=== PATIENT | female | born 1980 | race Caucasian/White ===

== ENCOUNTER → 2023-12-10 | Outpatient (REF) | payer OTHER, SELFPAY | LOC: DHSLP | PROVIDERS: ATTENDING PHYSICIAN Otolaryngology; FAMILY PHYSICIAN Student in an Organized Health Care Education/Training Program | DX: G47.30 Sleep apnea, unspecified (principal); R06.83 Snoring | CPT/HCPCS: 95806 ==

== ENCOUNTER 2024-02-01 13:25 | Emergency (ER) | payer OTHER, SELFPAY ==
[2024-02-01 13:31] VITALS: BMI 19.3
[2024-02-01 14:00] VITALS: BP 111/69
[2024-02-01 14:26] VITALS: BP 115/76
[2024-02-01] MEDS: ATIVAN 0.25 MG PO (14:35)
[2024-02-01 14:47] LABS: % Basophils 0.1 % (0-2); % Eosinophils 0.1 % (0-6); % Immature Granulocytes 0.2 % (0-0.5); % Lymphocytes 13.3 % (20.5-51.1); % Neutrophils 82.3 % (42.2-75.2); Absolute Lymphocytes 1.1 10^3/uL (1.2-3.4); Absolute Monocytes 0.3 10^3/uL (0.1-0.6); Absolute Neutrophils 6.7 10^3/uL (1.4-6.5); Hematocrit 37.4 % (37.0-47.0); Hemoglobin 13.7 g/dL (12.0-16.0); Mean Corp Hgb Conc. 36.6 g/dL (33.0-37.0); Mean Corpuscular Hgb 32.8 pg (27.0-31.0); Mean Corpuscular Volume 89.5 fL (81.0-99.0); Mean Platelet Volume 11.3 fL (7.4-10.4); Nucleated Red Blood Cells % 0 %; Platelet Count 160 10^3/uL (130-400); Red Blood Cell Count 4.18 10^6/uL (4.20-5.40); Red Cell Dist. Width 12.4 % (11.5-14.5); White Blood Cell Count 8.2 10^3/uL (4.8-10.8)
--- NOTE | 2024-02-01 14:53 | ED.GENMED ---
History of Present Illness
General
Chief Complaint: Anxiety
Time Seen by Provider: 02/01/24 13:32
History of Present Illness
History of Present Illness:
43-year-old female with history of anxiety presenting to the emergency department with increased anxiety and concern of 'fogginess '. Patient reports 4 days ago her medications were adjusted. She is on BuSpar and Prozac. She is in outpatient
therapy, and her medications were adjusted because she still having anxiety. After medication adjustment, started to have flushing, and overall feeling unwell. She denies chest pain or difficulty breathing. She notes some nausea without vomiting.
She denies any fever, however reports that she feels hot and flushed. She was googling her symptoms and now she is concerned for serotonin syndrome. She denies additional acute medical complaints.
Past History
Past History
ED Past Medical History: Psychiatric
ED Past Surgical History: None
Patient has exhibited threatening behavior?: No
PSI?: No
Social History
Tobacco: Non-smoker
Alcohol: Former
Drug: None
Personal:
Living: with family
Phy Exam
Physical Exam
Physical Exam:
General: Well-appearing, no clinical signs of dehydration, nontoxic and in no acute distress
HEENT: protecting airway
Neck: appears supple
CV: Normal heart rate, regular rhythm, no evidence of cyanosis
Resp: No accessory muscle use, no increased work of breathing, lungs clear to auscultation bilaterally
Abd: Soft and non-distended, no tenderness to palpation, normal bowel sounds
Extremities: No deformities, no swelling, no erythema, pulses and sensation intact
Neuro: alert, no focal neurologic deficit
: deferred
Rectal: deferred
Psych: Anxious
Skin: Intact
Course
Orders/Labs/Results
Orders:
Orders
02/01/24 14:15
Lorazepam [Ativan] 0.25 mg PO ONCE ONE
02/01/24 14:42
Complete Blood Count/With Diff Urgent
Comprehensive Metabolic Panel Urgent
Abnormal Lab Results
02/01/24
14:42
RBC 4.18 L 10^6/uL
(4.20-5.40)
MCH 32.8 H pg
(27.0-31.0)
MPV 11.3 H fL
(7.4-10.4)
Absolute Neuts (auto) 6.7 H 10^3/uL
(1.4-6.5)
Absolute Lymphs (auto) 1.1 L 10^3/uL
(1.2-3.4)
Neutrophils % 82.3 H %
(42.2-75.2)
Lymphocytes % 13.3 L %
(20.5-51.1)
Creatinine 0.5 L mg/dL
(0.6-1.0)
Glucose 100 H mg/dl
(70-99)
02/01/24 14:42
02/01/24 14:42
Vital Signs
Initial and Last Documented VS:
Initial Vital Signs
Pulse Resp Pulse Ox
82 16 100
02/01/24 13:32 02/01/24 13:32 02/01/24 13:32
Last Documented Vital Signs
Pulse Resp Pulse Ox
82 16 100
02/01/24 13:32 02/01/24 13:32 02/01/24 13:32
MDM/Problems Addressed
MDM/Problems Addressed:
43-year-old female with history of anxiety presenting with increased anxiety, fogginess, flushing. Vital signs on arrival are normal
On exam, patient is resting comfortably, no acute distress, however does appear anxious. Heart rate is regular. She is awake, alert, answering questions appropriately without any confusion. Blood pressure within normal limits. Pupils are equal
and reactive, no dilation. No muscle twitching. No muscle rigidity. No perceived sweating. Patient afebrile. No tremulousness. At this time explained to patient syndrome. However, do feel patient is reacting to the increase of her dose. Will
screen with laboratory analysis. Will administer Ativan for present anxiety.
15:50 - Labs unremarkable. Discussed with patient that if she is have any symptoms, to go back onto her previous dosage and to discuss with her therapist moving forward. Otherwise feel stable for discharge. Return precautions discussed and
patient verbalized understanding
*Critical Care Note
Total Time (30-74mins, 75-104mins- exclusive of procedures): Not Applicable
ED Attending Note
-
Portions of this chart may have been created with voice recognition software.� Occasional wrong word or��sound alike� substitutions may have occurred due to the inherent limitations of voice recognition software.
Discharge Plan
Departure
Prescriptions:
No Action
fluoxetine 40 mg capsule
40 mg PO DAILY
Rx Instructions:
TAKEN W/ 10MG = 50MG
fluoxetine 10 mg capsule
10 mg PO DAILY
Rx Instructions:
TAKEN W/ 40MG = 50MG
Blisovi 24 Fe 1 mg-20 mcg (24)/75 mg (4) tablet
1 tab PO DAILY
phenazopyridine [Pyridium] 100 mg tablet
100 mg PO TID PRN (Reason: urinery symptoms) Qty: 10 0RF
cefuroxime axetil 500 mg Tablet
500 mg PO BID Qty: 6 0RF
ondansetron 4 mg tablet,disintegrating
4 mg PO Q8H PRN (Reason: nausea and vomiting) Qty: 10 0RF
pantoprazole [Protonix] 40 mg tablet,delayed release (DR/EC)
40 mg PO DAILY Qty: 30 0RF
dicyclomine 20 mg tablet
20 mg PO TID Qty: 30 0RF
Referrals:
Kamini Castillo MD [Family Provider] -
Interventions
Interventions:
*Risk Screen - Suicide Last Done: 02/01/24 13:32
*General Assessment Last Done: 02/01/24 13:32
ED-Psychological Assessment Last Done: 02/01/24 14:47
Discharge Date and Time
Print Language: MOHAWK
[2024-02-01 15:02] LABS: ALT (SGPT) 33 U/L (0-35); AST (SGOT) 28 U/L (14-36); Albumin 4.9 g/dl (3.5-5.0); Alkaline Phosphatase 84 U/L (38-126); Blood Urea Nitrogen 12 mg/dl (7-17); Calcium 9.7 mg/dl (8.4-10.2); Carbon Dioxide 24 mmol/L (22-30); Chloride 105 mmol/L (98-107); Estimated Creatinine Clearance 89 ml/min; Glucose 100 mg/dl (70-99); Potassium 3.7 mmol/L (3.5-5.1); Sodium 138 mmol/L (135-145); Total Bilirubin 0.5 mg/dl (0.2-1.3); Total Protein 7.5 g/dl (6.3-8.2); eGFR > 60.00
== END 2024-02-01 16:16 | disposition home or self-care (01) ==
LOC: EMR 13:25
PROVIDERS: EMERGENCY PHYSICIAN Student in an Organized Health Care Education/Training Program; FAMILY PHYSICIAN Student in an Organized Health Care Education/Training Program
DX: F41.9 Anxiety disorder, unspecified (principal)
CPT/HCPCS: 99283; 80053; 85025

== ENCOUNTER 2025-04-08 04:44 | Emergency (ER) | payer OTHER, SELFPAY ==
[2025-04-08 04:49] VITALS: BP 119/79
--- NOTE | 2025-04-08 05:15 | ED.GENMED ---
History of Present Illness
General
Chief Complaint: Musculo-Skeletal Complaint
Source: patient
Exam Limitations: none
Time Seen by Provider: 04/08/25 05:03
Nursing documentation reviewed up to this point in time: agreed with
History of Present Illness
History of Present Illness:
44-year-old female past with history of IBS presenting to the emergency department today with concerns of 2 days of worsening right sided index finger redness and swelling. Denies any specific injury to the area. Denies any drainage. Denies
fevers or systemic symptoms.
Past History
Past History
ED Past Medical History: Psychiatric
ED Past Surgical History: None
Patient has exhibited threatening behavior?: No
PSI?: No
Social History
Tobacco: Non-smoker
Alcohol: Former
Drug: None
Personal:
Living: with family
Review of Systems
Review of Systems
Allergies reviewed?: Yes
All Other Systems: ROS reviewed and negative except as documented in HPI and ROS
Phy Exam
Physical Exam
Physical Exam:
GENERAL: Alert , in no apparent distress
EYE: pupils equal and reactive
NECK: Supple, no significant adenopathy.
ENT: o/p clr, mmm.
CARDIAC: Regular rate and rhythm .
LUNGS: Clear breath sounds bilaterally, no acute respiratory distress, no wheezes/rales/rhonchi
ABDOMEN: Soft, without focal tenderness, no r/g, no cvat
NEUROLOGICAL: Alert and oriented, no focal neuro deficits
SKIN: Warm and dry, skin intact.
MUSCULOSKELETAL: Right index finger with redness and swelling to the radial aspect of the nailbed no active drainage no tenderness to the pulp of the finger, no edema, well perfused.
PSYCH: Normal and appropriate interaction.
Course
Vital Signs
Initial and Last Documented VS:
Initial Vital Signs
Temp Pulse Resp BP Pulse Ox
97.8 F 100 20 119/79 100
04/08/25 04:49 04/08/25 04:49 04/08/25 04:49 04/08/25 04:49 04/08/25 04:49
Last Documented Vital Signs
Temp Pulse Resp BP Pulse Ox
97.8 F 100 20 119/79 100
04/08/25 04:49 04/08/25 04:49 04/08/25 04:49 04/08/25 04:49 04/08/25 05:17
Procedures
Incision/Drainage/Joint Aspiration
Right Distal Radial Second Finger:
Anethesia: 1% Lidocaine
Preparation: cleaned with alcohol wipe
Type of procedure: incise and drain
Nature of site: abscess
Description of abscess: less than 3cm
Loculations broken up: No
How much fluid was obtained?: scant amount
Fluid description: purulent
Treatment: left open for drainage
MDM/Problems Addressed
MDM/Problems Addressed:
44-year-old female presenting with paronychia to the right index finger. This was incised and drained after digital block. Patient tolerated well stable for discharge return precautions given.
*Pulse Oximetry
SaO2: 100
Oxygen Mode of Delivery: Room air
Patient hypoxic: no (100)
*Critical Care Note
Total Time (30-74mins, 75-104mins- exclusive of procedures): Not Applicable
ED Attending Note
-
Portions of this chart may have been created with voice recognition software.� Occasional wrong word or��sound alike� substitutions may have occurred due to the inherent limitations of voice recognition software.
Discharge Plan
Departure
Patient Disposition: Home (Routine Discharge)
Date of Disposition: 04/08/25
Time of Disposition: 05:23
Patient with high blood pressure during this ER visit?: No
Condition: Good
Covid-19: Not Applicable
Discharge Problem:
Paronychia
Instructions: Paronychia - ED (DC)
Prescriptions:
New
mupirocin [Centany] 2 % ointment
1 applic topical BID Qty: 15 0RF
No Action
fluoxetine 40 mg capsule
40 mg PO DAILY
Rx Instructions:
TAKEN W/ 10MG = 50MG
fluoxetine 10 mg capsule
10 mg PO DAILY
Rx Instructions:
TAKEN W/ 40MG = 50MG
Blisovi 24 Fe 1 mg-20 mcg (24)/75 mg (4) tablet
1 tab PO DAILY
phenazopyridine [Pyridium] 100 mg tablet
100 mg PO TID PRN (Reason: urinery symptoms) Qty: 10 0RF
cefuroxime axetil 500 mg Tablet
500 mg PO BID Qty: 6 0RF
ondansetron 4 mg tablet,disintegrating
4 mg PO Q8H PRN (Reason: nausea and vomiting) Qty: 10 0RF
pantoprazole [Protonix] 40 mg tablet,delayed release (DR/EC)
40 mg PO DAILY Qty: 30 0RF
dicyclomine 20 mg tablet
20 mg PO TID Qty: 30 0RF
Activity Restrictions/Additional Instructions:
You came to the emergency department today with concerns of a paronychia. Please use warm compresses to the area and antibiotic ointment. Return for any worsening, new or concerning symptoms.
Interventions
Interventions:
*Risk Screen - Suicide Last Done: 04/08/25 04:49
*General Assessment Last Done: 04/08/25 04:49
*Neglect/Abuse Screening Last Done: 04/08/25 04:49
*ED- Fall Risk Assessment Last Done: 04/08/25 04:49
*ED COVID-19 Vaccine History Last Done: 04/08/25 04:49
ED-Musculoskeletal Assessment Last Done: 04/08/25 05:13
Discharge Date and Time
Print Language: YI
[2025-04-08 05:49] VITALS: BP 114/75
== END 2025-04-08 05:53 | disposition home or self-care (01) ==
LOC: EMR 04:44
PROVIDERS: EMERGENCY PHYSICIAN Student in an Organized Health Care Education/Training Program; FAMILY PHYSICIAN Family Medicine
DX: L03.011 Cellulitis of right finger (principal)
CPT/HCPCS: 26010; 99282